=== PATIENT | female | born 2000 | race Two or more races ===

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

== ENCOUNTER 2022-03-05 10:33 | Emergency (ER) | payer MEDICAID ==
[~2022-03-05] VITALS: Ht 154.9 cm; Wt 59.5 kg
[2022-03-05 12:12] LABS: Basophils # (auto) 0.1 10 ^3/uL (0-0.2); Basophils % (auto) 0.8 % (0.0-2.0); Eosinophils # (auto) 0.1 10 ^3/uL (0-0.8); Eosinophils % (auto) 0.6 % (0.0-7.0); Hemoglobin 13.3 g/dL (12.2-16.2); Lymphocytes # (auto) 1.7 10 ^3/uL (0.4-5.4); Lymphocytes % (auto) 19.4 % (10.0-50.0); Mean Corpuscular Hemoglobin 29.8 pg (28.0-32.0); Mean Corpuscular Hgb Conc. 33.2 g/dL (32.0-36.0); Mean Corpuscular Volume 89.7 fL (80.0-100.0); Monocytes # (auto) 0.5 10 ^3/uL (0-1.3); Monocytes % (auto) 5.6 % (0.0-12.0); Neutrophils # (auto) 6.3 10 ^3/uL (1.6-8.6); Neutrophils % (auto) 73.6 % (37.0-80.0); Red Blood Cells 4.46 10^6/uL (4.0-5.20); Red Cell Distribution Width 12.9 % (11.8-14.3); White Blood Cell 8.5 10^3/uL (4.4-10.8)
[2022-03-05 12:28] LABS: Calcium 9.2 mg/dL (8.5-10.1); Magnesium 2.6 mg/dL (1.6-2.6); Potassium 3.5 mmol/L (3.5-5.1)
[2022-03-05 12:32] LABS: BUN/Creatinine Ratio 16.1; Bilirubin, Total 0.6 mg/dL (0.2-1.0); Total Protein 7.6 g/dL (6.4-8.2)
[2022-03-05 13:00] VITALS: BP 105/64
== END 2022-03-05 16:07 | disposition home or self-care (01) ==
LOC: EDBD 10:33 → ER 10:39
DX: R55 Syncope and collapse (principal); R00.1 Bradycardia, unspecified; R53.83 Other fatigue
CPT/HCPCS: 36415; 71045; 80053; 81025; 83735; 83880; 84484; 85025; 93005

== ENCOUNTER 2023-09-07 10:16 | Emergency (ER) | payer MEDICAID ==
[~2023-09-07] VITALS: Ht 154.9 cm; Wt 62.4 kg
[2023-09-07 11:21] LABS: Urine Bacteria FEW /hpf (None Seen); Urine Blood Negative /uL (Negative); Urine Clarity HAZY (Clear); Urine Color Yellow (Yellow); Urine Mucus FEW (None Seen); Urine Protein, UAD TRACE (Negative); Urine Specific Gravity 1.022 (1.001-1.035); Urine Urobilinogen Normal (Negative); Urine WBC 5 /hpf (0 - 5)
[2023-09-07] MEDS ORDERED: NITR-87 PO (12:23)
[2023-09-07 12:34] VITALS: BP 111/69; PULSE 97; RESP 17; TEMP 98.4; O2SAT 96
== END 2023-09-07 12:36 | disposition home or self-care (01) ==
LOC: ER 10:16
DX: O23.42 Unspecified infection of urinary tract in pregnancy, second trimester (principal); N39.0 Urinary tract infection, site not specified; O99.612 Diseases of the digestive system complicating pregnancy, second trimester; K82.8 Other specified diseases of gallbladder; Z79.899 Other long term (current) drug therapy; Z91.018 Allergy to other foods; Z91.013 Allergy to seafood; Z3A.14 14 weeks gestation of pregnancy
CPT/HCPCS: 76705; 76805; 81001

== ENCOUNTER 2023-11-17 21:48 | Observation (INO) | payer MEDICAID ==
[~2023-11-17 21:48] MED LIST: NITR-87 PO
== END 2023-11-17 23:08 | disposition home or self-care (01) ==
LOC: LDRP 21:48
PROVIDERS: ADMIT Obstetrics & Gynecology; ATTEND Obstetrics & Gynecology
DX: O26.892 Other specified pregnancy related conditions, second trimester (principal); R10.30 Lower abdominal pain, unspecified; O99.891 Other specified diseases and conditions complicating pregnancy; M54.9 Dorsalgia, unspecified; Z3A.35 35 weeks gestation of pregnancy; Z91.040 Latex allergy status; Z88.0 Allergy status to penicillin
CPT/HCPCS: 59025; 81002; 94760; G0378

== ENCOUNTER 2023-12-25 14:07 | Observation (INO) | payer MEDICAID ==
[2023-12-25] MEDS ORDERED: PRENCAP87 OR (15:00)
== END 2023-12-25 15:19 | disposition home or self-care (01) ==
LOC: LDRP 14:07
PROVIDERS: ADMIT Obstetrics & Gynecology; ATTEND Obstetrics & Gynecology
DX: O36.8130 Decreased fetal movements, third trimester, not applicable or unspecified (principal); Z3A.31 31 weeks gestation of pregnancy; Z88.0 Allergy status to penicillin
CPT/HCPCS: 76815; G0378; 59025; 81002

== ENCOUNTER 2024-02-19 02:59 | Observation (INO) | payer MEDICAID ==
[~2024-02-19 02:59] MED LIST changes: +PRENCAP87 OR
== END 2024-02-19 07:32 | disposition home or self-care (01) ==
LOC: LDRP 02:59
PROVIDERS: ADMIT Obstetrics & Gynecology; ATTEND Obstetrics & Gynecology
DX: O62.9 Abnormality of forces of labor, unspecified (principal); O99.513 Diseases of the respiratory system complicating pregnancy, third trimester; R06.02 Shortness of breath; Z3A.39 39 weeks gestation of pregnancy
CPT/HCPCS: 59025; 76818; 81002; 94760; G0378

== ENCOUNTER 2024-02-25 10:12 | Observation (INO) | payer MEDICAID | END 2024-02-25 12:16 | disposition home or self-care (01) | LOC: LDRP 10:12 | PROVIDERS: ADMIT Obstetrics & Gynecology; ATTEND Obstetrics & Gynecology | DX: O62.9 Abnormality of forces of labor, unspecified (principal); Z3A.40 40 weeks gestation of pregnancy | CPT/HCPCS: 59025; 76818; 81002; 94760; G0378 ==

== ENCOUNTER 2024-02-26 06:08 | Inpatient (IN) | payer MEDICAID ==
[~2024-02-26] VITALS: Ht 154.9 cm; Wt 70.8 kg
[2024-02-26] MEDS ORDERED: BUTORPHANOL TARTRATE 2 MG/1 ML VIAL IV PRN ×2 (06:30)
[2024-02-26] MEDS ORDERED: LIDOCAINE 2%HCL (LOCAL ANESTH.) INJ 20ML MDV IJ PRN (06:30)
[2024-02-26 07:11] LABS: Urine Bacteria FEW /hpf (None Seen); Urine Blood Negative /uL (Negative); Urine Clarity Turbid (Clear); Urine Color Yellow (Yellow); Urine Mucus FEW (None Seen); Urine Protein, UAD 1+ (Negative); Urine Specific Gravity 1.024 (1.001-1.035); Urine Urobilinogen 3 mg/dL (Negative); Urine WBC 19 /hpf (0 - 5); Urine pH 6.5 (5.0-9.0)
[2024-02-26 07:11] LABS: Basophils # (auto) 0 10 ^3/uL (0-0.2); Basophils % (auto) 0.4 % (0.0-2.0); Eosinophils # (auto) 0.2 10 ^3/uL (0-0.8); Eosinophils % (auto) 2.7 % (0.0-7.0); Hematocrit 36.6 % (36.0-46.0); Hemoglobin 12.7 g/dL (12.2-16.2); Lymphocytes # (auto) 1.7 10 ^3/uL (0.4-5.4); Lymphocytes % (auto) 18.8 % (10.0-50.0); Mean Corpuscular Hemoglobin 31.9 pg (28.0-32.0); Mean Corpuscular Hgb Conc. 34.6 g/dL (32.0-36.0); Mean Corpuscular Volume 92.1 fL (80.0-100.0); Monocytes # (auto) 0.5 10 ^3/uL (0-1.3); Monocytes % (auto) 5.6 % (0.0-12.0); Neutrophils # (auto) 6.7 10 ^3/uL (1.6-8.6); Neutrophils % (auto) 72.5 % (37.0-80.0); Platelet Count (auto) 253 10^3/uL (140-450); Red Blood Cells 3.98 10^6/uL (4.0-5.20); Red Cell Distribution Width 16.6 % (11.8-14.3); White Blood Cell 9.2 10^3/uL (4.4-10.8)
[2024-02-26 07:22] LABS: INR 0.92 (0.9-1.15); Partial Thromboplastin Time 26.9 SEC (24.5-34.5); Prothrombin Time 9.8 sec (9.3-11.8)
[2024-02-26 07:33] LABS: Alanine Aminotransferase 15 U/L (7-40); Albumin 3.6 g/dL (3.2-4.8); Alkaline Phosphatase 308 U/L (46-116); Anion Gap 5 (5-15); Aspartate Aminotransferase 15 U/L (13-40); BUN/Creatinine Ratio 10.4 (10.0-20.0); Bilirubin, Total 0.4 mg/dL (0.2-1.0); Blood Urea Nitrogen 7 mg/dL (9-23); Calcium 9.2 mg/dL (8.7-10.4); Carbon Dioxide 24 mmol/L (20-30); Chloride 108 mmol/L (98-107); Glucose 149 mg/dL (74-106); Potassium 3.7 mmol/L (3.5-5.1); Sodium 137 mmol/L (136-145)
[2024-02-26 07:53] LABS: Amphetamine Screen, Urine Neg (NEGATIVE); Benzodiazephine Screen, Urine Neg (NEGATIVE)
[2024-02-26 07:54] LABS: Barbiturate Scree,Urine Neg (NEGATIVE); Cannabinoid Screen, Urine Neg (NEGATIVE); Cocaine Screen, Urine Neg (NEGATIVE); Opiate Scree,Urine Neg (NEGATIVE); Phencyclidine Screen, Urine Neg (NEGATIVE)
[2024-02-26] MEDS: miSOPROStol 50 MCG per PRE-CUT 1/2 TAB PO PRN (08:59)
[2024-02-26] MEDS: LACTATED RINGER'S 1,000 ML IV SCH (09:03)
[2024-02-26] MEDS ORDERED: NALOXONE HCL 0.4 MG/ML VIAL IV ONE (14:45)
[2024-02-26] MEDS ORDERED: ePHEDrine SULFATE 50 MG/ML AMP IV ONE (14:45)
[2024-02-26] MEDS: LACTATED RINGER'S 1,000 ML IV ONE (15:08)
[2024-02-26] MEDS: ROPIVACAINE HCL 200 ML ONE (15:16)
[2024-02-26] MEDS: ePHEDrine SULFATE 50 MG/ML AMP ONE (15:18)
[2024-02-26] MEDS: DERMOPLAST 60ML BOTTLE TOP PRN (17:20)
[2024-02-26] MEDS: PHISODERM TOP SOLN 240ML BTL TOP PRN (17:20)
[2024-02-26] MEDS: WITCH HAZEL-GLYCERIN PAD TOP PRN (17:20)
[2024-02-26] MEDS ORDERED: ONDANSETRON HCL 4 MG/2 ML VIAL IV PRN (19:45)
[2024-02-26] MEDS ORDERED: miSOPROStol 100 mcg TAB PR PRN (19:45)
[2024-02-26] MEDS ORDERED: miSOPROStol 100 mcg TAB SL PRN (19:45)
[2024-02-26] MEDS ORDERED: METHYLERGONOVINE MALEATE 0.2 MG/ML AMP IM PRN (19:45)
[2024-02-26] MEDS ORDERED: CARBOPROST TROMETHAMINE 250 MCG/1ML VIAL IM PRN (19:45)
[2024-02-26] MEDS ORDERED: ONDANSETRON ODT 4 MG TAB PO PRN (21:00)
[2024-02-26] MEDS ORDERED: NS/OXYTOCIN 20UNITS 1,000 ML IV SCH (21:30)
[2024-02-26] MEDS: LACT. RINGERS/OXYTOCIN 20UNITS 500 ML IV ONE ×2 (22:39→22:40)
[2024-02-26] MEDS: NS/OXYTOCIN 20UNITS 500 ML IV ONE (22:44)
[2024-02-26] MEDS: LACT. RINGERS/OXYTOCIN 20UNITS 1,000 ML IV ONE (22:44)
[2024-02-27] MEDS: ACETAMINOPHEN 325 MG TAB PO PRN (02:38)
[2024-02-27 02:40] VITALS: BP 104/59; PULSE 80; RESP 18; TEMP 98.3; O2SAT 97
[2024-02-27] MEDS: DOCUSATE SOD 100 MG CAP PO SCH (06:02)
[2024-02-27] MEDS: DIPHENOXYLATE W/ATROPINE 2.5 MG TAB PO SCH (06:03)
[2024-02-27 07:00] VITALS: BP 106/65; PULSE 86; RESP 17; TEMP 98.6; O2SAT 98
[2024-02-27 07:07] LABS: RPR Non Reactive (Non Reactive)
[2024-02-27 07:46] LABS: Basophils # (auto) 0 10 ^3/uL (0-0.2); Basophils % (auto) 0.4 % (0.0-2.0); Eosinophils # (auto) 0.1 10 ^3/uL (0-0.8); Eosinophils % (auto) 1.1 % (0.0-7.0); Hemoglobin 11.1 g/dL (12.2-16.2); Lymphocytes # (auto) 2.2 10 ^3/uL (0.4-5.4); Lymphocytes % (auto) 17.5 % (10.0-50.0); Mean Corpuscular Hemoglobin 30.9 pg (28.0-32.0); Mean Corpuscular Hgb Conc. 33.7 g/dL (32.0-36.0); Mean Corpuscular Volume 91.6 fL (80.0-100.0); Monocytes # (auto) 0.7 10 ^3/uL (0-1.3); Monocytes % (auto) 5.7 % (0.0-12.0); Neutrophils # (auto) 9.6 10 ^3/uL (1.6-8.6); Neutrophils % (auto) 75.3 % (37.0-80.0); Platelet Count (auto) 231 10^3/uL (140-450); Red Cell Distribution Width 16.5 % (11.8-14.3); White Blood Cell 12.8 10^3/uL (4.4-10.8)
[2024-02-27] MEDS: ceFAZolin 2 GM/D5W50ml 50 ML IV ONE (10:02)
[2024-02-27] MEDS: IBUPROFEN 800 MG TAB PO SCH (10:23)
[2024-02-27 11:00] VITALS: BP 101/53; PULSE 74; RESP 16; TEMP 97.8; O2SAT 97
[2024-02-27 15:00] VITALS: BP 103/62; PULSE 73; RESP 20; TEMP 99.1; O2SAT 97
[2024-02-27 19:05] VITALS: BP 105/61; PULSE 84; RESP 18; TEMP 98.1; O2SAT 97
[2024-02-27] MEDS ORDERED: DOCU-265 PO ×2 (19:34)
[2024-02-27] MEDS ORDERED: PRENCAP11 PO ×2 (19:34)
[2024-02-27] MEDS ORDERED: IBUP-1455 PO ×2 (19:34)
[2024-02-27 22:29] VITALS: BP 105/61; PULSE 84; RESP 16; TEMP 98.1; O2SAT 97
[2024-02-28 01:06] LABS: Treponema Pallidum Ab LC Non Reactive (Non Reactive)
== END 2024-02-27 22:29 | disposition home or self-care (01) | DRG 560 ==
LOC: LDRP 06:08
PROVIDERS: ADMIT Obstetrics & Gynecology; ATTEND Obstetrics & Gynecology
PROC: 10E0XZZ Delivery of Products of Conception, External Approach (ICD-10-PCS; principal; 2024-02-26)
PROC: 3E0DXGC Introduction of Other Therapeutic Substance into Mouth and Pharynx, External Approach (ICD-10-PCS; 2024-02-26)
PROC: 0HQ9XZZ Repair Perineum Skin, External Approach (ICD-10-PCS; 2024-02-26)
PROC: 3E0R3BZ Introduction of Anesthetic Agent into Spinal Canal, Percutaneous Approach (ICD-10-PCS; 2024-02-26)
PROC: 00HU33Z Insertion of Infusion Device into Spinal Canal, Percutaneous Approach (ICD-10-PCS; 2024-02-26)
PROC: 10907ZC Drainage of Amniotic Fluid, Therapeutic from Products of Conception, Via Natural or Artificial Opening (ICD-10-PCS; 2024-02-26)
DX: O48.0 Post-term pregnancy (principal); Z37.0 Single live birth; O69.1XX0 Labor and delivery complicated by cord around neck, with compression, not applicable or unspecified; O70.0 First degree perineal laceration during delivery; Z3A.40 40 weeks gestation of pregnancy; Z88.0 Allergy status to penicillin
CPT/HCPCS: 36415; 59409; 62282; 80053; 80307; 81001; 84112; 85025; 85610; 85730; 86592; 86850; 86900; 86901; 94760; 94762; 96360; 96361; G0378; J2590

== ENCOUNTER 2024-03-13 17:32 | Emergency (ER) | payer MEDICAID ==
[~2024-03-13 17:32] MED LIST changes: +DOCU-265 PO; +IBUP-1455 PO; -NITR-87 PO; +PRENCAP11 PO; -PRENCAP87 OR
== END 2024-03-13 18:15 | disposition left against medical advice (07) ==
LOC: ER 17:50
DX: R10.9 Unspecified abdominal pain (principal); Z53.21 Procedure and treatment not carried out due to patient leaving prior to being seen by health care provider

== ENCOUNTER 2024-04-26 03:37 | Emergency (ER) | payer MEDICAID ==
[~2024-04-26] VITALS: Ht 154.9 cm; Wt 64.1 kg
[2024-04-26] MEDS: ONDANSETRON HCL 4 MG/2 ML VIAL IV ONE (04:16)
[2024-04-26] MEDS: SODIUM CHLORIDE 0.9% 1,000 ML IV ONE (04:16)
[2024-04-26] MEDS: MORPHINE SULFATE 4 MG/ML SYR/VIAL IV ONE (04:18)
[2024-04-26 04:32] LABS: Basophils # (auto) 0.1 10 ^3/uL (0-0.2); Basophils % (auto) 0.5 % (0.0-2.0); Eosinophils # (auto) 0.1 10 ^3/uL (0-0.8); Eosinophils % (auto) 1.3 % (0.0-7.0); Hematocrit 41.1 % (36.0-46.0); Hemoglobin 13.9 g/dL (12.2-16.2); Lymphocytes # (auto) 1.5 10 ^3/uL (0.4-5.4); Lymphocytes % (auto) 13.5 % (10.0-50.0); Mean Corpuscular Hemoglobin 30.9 pg (28.0-32.0); Mean Corpuscular Hgb Conc. 33.9 g/dL (32.0-36.0); Mean Corpuscular Volume 91.2 fL (80.0-100.0); Monocytes # (auto) 0.6 10 ^3/uL (0-1.3); Monocytes % (auto) 5.2 % (0.0-12.0); Neutrophils # (auto) 9.1 10 ^3/uL (1.6-8.6); Neutrophils % (auto) 79.5 % (37.0-80.0); Platelet Count (auto) 332 10^3/uL (140-450); Red Cell Distribution Width 13.2 % (11.8-14.3); White Blood Cell 11.5 10^3/uL (4.4-10.8)
[2024-04-26 04:35] VITALS: PULSE 70; RESP 18; O2SAT 97
[2024-04-26 04:55] LABS: Alanine Aminotransferase 58 U/L (7-40); Albumin 4.5 g/dL (3.2-4.8); Alkaline Phosphatase 175 U/L (46-116); Anion Gap 6 (5-15); Aspartate Aminotransferase 56 U/L (13-40); BUN/Creatinine Ratio 20.5 (10.0-20.0); Bilirubin, Total 0.3 mg/dL (0.2-1.0); Blood Urea Nitrogen 16 mg/dL (9-23); Calcium 9.2 mg/dL (8.7-10.4); Carbon Dioxide 26 mmol/L (20-31); Chloride 110 mmol/L (98-107); Glucose 109 mg/dL (74-106); Sodium 142 mmol/L (136-145); Total Protein 7.3 g/dL (5.7-8.2)
[2024-04-26 05:11] LABS: Lipase 42 U/L (12-53)
[2024-04-26] MEDS ORDERED: [UNRECOGNIZED DRUG - CODE] PO (07:08)
[2024-04-26 07:14] VITALS: BP 111/68; PULSE 61; RESP 14; TEMP 97.7; O2SAT 98
== END 2024-04-26 07:19 | disposition home or self-care (01) ==
LOC: ER 03:37
DX: K80.20 Calculus of gallbladder without cholecystitis without obstruction (principal); R10.2 Pelvic and perineal pain; K59.00 Constipation, unspecified; Z88.0 Allergy status to penicillin; Z88.1 Allergy status to other antibiotic agents; Z91.014 Allergy to mammalian meats; Z79.899 Other long term (current) drug therapy
CPT/HCPCS: 36415; 74176; 80053; 83690; 84702; 85025; 96361; 96374; 96375; 99285; J2270; J2405; J7030

== ENCOUNTER → 2024-05-07 | Outpatient (CLI) | payer MEDICAID ==
[~2024-05-07] MED LIST changes: +[UNRECOGNIZED DRUG - CODE] PO
== END | disposition home or self-care (01) ==
LOC: LAB 14:36
PROVIDERS: ATTEND Obstetrics & Gynecology
DX: N39.0 Urinary tract infection, site not specified (principal)
CPT/HCPCS: 87086